=== PATIENT | female | born 1945 | race Caucasian/White ===

== ENCOUNTER 2018-10-17 11:12 | Emergency (ER) | payer MEDICARE, MEDICAID ==
[~2018-10-17] VITALS: Ht 152.4 cm; Wt 75.9 kg
[~2018-10-17 11:12] MED LIST: ALBU8.5H8 IH; ATRIN IH; EZET10TA14 PO; FURO20TA4 PO; HYDR-4353 PO; NITR0.4T SL; OMEP20TA23 PO; SERT25TA PO
[2018-10-17 12:11] LABS: BASOPHILS % (AUTO) 0.2 % (0-1); EOSINOPHILS % (AUTO) 0.4 % (0-6); HEMATOCRIT 37.9 % (35.0-45.0); HEMOGLOBIN 12.5 g/dl (12.0-16.0); LYMPHOCYTES # (AUTO) 1.4 X10'3 (1.1-4.8); LYMPHOCYTES % (AUTO) 15.7 % (21-51); MEAN CORPUSCULAR HEMOGLOBIN 32.6 PG (27.0-31.0); MEAN CORPUSCULAR VOLUME 98.9 FL (78-98); MEAN PLATELET VOLUME 7.1 FL (7.4-10.4); MONOCYTES % (AUTO) 10.9 % (2-12); NEUTROPHILS # (AUTO) 6.6 X10'3 (1.8-7.7); NEUTROPHILS % (AUTO) 72.8 % (42-75); PLATELET COUNT 303 X10'3 (140-440); RED BLOOD COUNT 3.83 X10'6 (4.20-5.60); RED CELL DISTRIBUTION WIDTH 12.2 % (11.5-14.5)
[2018-10-17] MEDS: levoFLOXACIN 750MG TABLET PO ONE (12:30)
[2018-10-17] MEDS: methylPREDNISolone sod succ 125mg/2ml vial IV ONE (12:30)
[2018-10-17 12:38] LABS: ALANINE AMINOTRANSFERASE 20 U/L (12-78); ALBUMIN 3.6 G/DL (3.4-5.0); ALBUMIN/GLOBULIN RATIO 0.9 (1.1-1.5); ALKALINE PHOSPHATASE 81 IU/L (46-116); ANION GAP 3 (8-16); ASPARTATE AMINO TRANSFERASE 12 U/L (10-37); BILIRUBIN,TOTAL 0.2 MG/DL (0.1-1.0); BLOOD UREA NITROGEN 6 MG/DL (7-18); BUN/CREATININE RATIO 11.1 (6.6-38.0); CALCIUM 9.1 MG/DL (8.5-10.1); CHLORIDE 98 MMOL/L (99-107); CREATININE 0.54 MG/DL (0.40-0.90); GLUCOSE 97 MG/DL (70-104); POTASSIUM 3.8 MMOL/L (3.5-5.1); SODIUM 142 MMOL/L (135-145); TOTAL PROTEIN 7.8 G/DL (6.4-8.2); eGFR > 90 ML/MIN
[2018-10-17 12:41] LABS: TOTAL CARBON DIOXIDE 41.1 MMOL/L (24-32)
[2018-10-17] MEDS ORDERED: METH4TAB81 PO (14:00)
[2018-10-17] MEDS ORDERED: LEVO750T21 PO (14:00)
[2018-10-17 14:21] VITALS: BP 142/85
== END 2018-10-17 14:24 | disposition home or self-care (01) ==
LOC: ER 11:12
DX: J44.1 Chronic obstructive pulmonary disease with (acute) exacerbation (principal); R60.0 Localized edema; I25.10 Atherosclerotic heart disease of native coronary artery without angina pectoris; I50.9 Heart failure, unspecified; E78.00 Pure hypercholesterolemia, unspecified; I25.2 Old myocardial infarction; Z88.8 Allergy status to other drugs, medicaments and biological substances; Z79.899 Other long term (current) drug therapy; Z99.81 Dependence on supplemental oxygen
CPT/HCPCS: 36415; 71045; 80053; 83880; 84484; 85025; 93005; 96374; 99284; J2930

== ENCOUNTER 2019-10-19 09:58 | Inpatient (IN) | payer MEDICARE, MEDICAID ==
[~2019-10-19] VITALS: Ht 167.6 cm; Wt 72.7 kg
[~2019-10-19 09:58] MED LIST changes: -EZET10TA14 PO; +EZET10TA21 PO; +METH4TAB81 PO
[2019-10-19 10:32] LABS: BASOPHILS % (AUTO) 0.3 % (0-1); EOSINOPHILS % (AUTO) 0 % (0-6); HEMATOCRIT 39.6 % (35.0-45.0); LYMPHOCYTES % (AUTO) 8.7 % (21-51); MEAN CORPUSCULAR HEMOGLOBIN 33.1 PG (27.0-31.0); MEAN CORPUSCULAR HGB CONC 32.9 g/dL (33.0-36.5); MEAN CORPUSCULAR VOLUME 100.8 FL (78-98); MEAN PLATELET VOLUME 7.4 FL (7.4-10.4); MONOCYTES # (AUTO) 1.2 X10'3 (0-0.9); MONOCYTES % (AUTO) 9.8 % (2-12); NEUTROPHILS # (AUTO) 9.7 X10'3 (1.8-7.7); NEUTROPHILS % (AUTO) 81.2 % (42-75); PLATELET COUNT 295 X10'3 (140-440); RED BLOOD COUNT 3.93 X10'6 (4.20-5.60); RED CELL DISTRIBUTION WIDTH 13.2 % (11.5-14.5)
[2019-10-19] MEDS ORDERED: magnesium 2GM in 50ml NS 50 ML IV ONE (10:45)
[2019-10-19] MEDS ORDERED: ipratropium/albuterol 3ml nebule NEB ONE (10:45)
[2019-10-19] MEDS ORDERED: methylPREDNISolone sod succ 125mg/2ml vial IV ONE (10:45)
[2019-10-19 10:55] LABS: ALANINE AMINOTRANSFERASE 16 U/L (12-78); ALBUMIN 3.7 G/DL (3.4-5.0); ALBUMIN/GLOBULIN RATIO 0.8 (1.1-1.5); ALKALINE PHOSPHATASE 82 IU/L (46-116); ANION GAP -2 (8-16); ASPARTATE AMINO TRANSFERASE 12 U/L (10-37); BILIRUBIN,TOTAL 0.4 MG/DL (0.1-1.0); BLOOD UREA NITROGEN 10 MG/DL (7-18); BUN/CREATININE RATIO 16.7 (6.6-38.0); CALCIUM 9.7 MG/DL (8.5-10.1); CHLORIDE 100 MMOL/L (99-107); GLUCOSE 153 MG/DL (70-104); POTASSIUM 4.4 MMOL/L (3.5-5.1); SODIUM 140 MMOL/L (135-145); TOTAL PROTEIN 8.6 G/DL (6.4-8.2); eGFR > 90 ML/MIN
[2019-10-19 10:58] LABS: TOTAL CARBON DIOXIDE 42.3 MMOL/L (24-32)
[2019-10-19 11:30] LABS: ABG OXYGEN SATURATION 98.6 % (95-98); ABG PCO2 (T) 75.2 mmHg (35.0-45.0); ABG PO2 (T) 180.2 mmHg (83-108); ALLEN'S TEST Positive; FCOHb 1.2 % (0.5-1.5); FLOW 8 L/min; FMetHb 0.3 % (0.3-1.12); FO2Hb 97.1 % (94-100); TOTAL HEMOGLOBIN 13.2 G/dl (12.0-16.0)
[2019-10-19 11:53] LABS: MAGNESIUM 2.2 MG/DL (1.5-2.4)
[2019-10-19] MEDS ORDERED: KEN0.1O TP (12:23)
[2019-10-19] MEDS ORDERED: ondansetron/PF 4mg/2ml inj IV PRN (12:30)
[2019-10-19] MEDS ORDERED: acetaminophen 650mg rectal suppository RC PRN (12:30)
[2019-10-19] MEDS ORDERED: potassium CL 10mEq/100ml bag 100 ML IV PRN ×2 (12:30)
[2019-10-19] MEDS ORDERED: magnesium Cl slow-release 64mg tablet PO PRN (12:30)
[2019-10-19] MEDS ORDERED: magnesium 2GM in 50ml NS 50 ML IV PRN (12:30)
[2019-10-19] MEDS ORDERED: diphenhydrAMINE 25mg capsule PO PRN (12:30)
[2019-10-19] MEDS ORDERED: bisacodyl 10mg suppository rectal RC PRN (12:30)
[2019-10-19] MEDS ORDERED: magnesium 4gm in 100ml NS 100 ML IV PRN (12:30)
[2019-10-19] MEDS ORDERED: acetaminophen 325mg tablet PO PRN ×2 (12:30)
[2019-10-19] MEDS ORDERED: diphenhydrAMINE 50 mg/ml inj IV PRN (12:30)
[2019-10-19] MEDS ORDERED: ipratropium/albuterol 3ml nebule NEB PRN (12:30)
[2019-10-19] MEDS ORDERED: metoclopramide 5 mg/ml inj IV PRN (12:30)
[2019-10-19] MEDS ORDERED: magnesium hydroxide 30ml (MOM) UD suspension PO PRN (12:30)
[2019-10-19] MEDS ORDERED: HYDROcodone/acetaminophen 10/325mg tab PO PRN (12:30)
[2019-10-19] MEDS ORDERED: potassium Cl 20 mEq SR tablet PO PRN ×2 (12:30)
[2019-10-19] MEDS ORDERED: mag hydrox/Alum hydrox/simeth 30ml oral suspension PO PRN (12:30)
[2019-10-19] MEDS: levoFLOXACIN-Levaquin 500mg/D5 100 ML IV SCH (13:27)
[2019-10-19] MEDS ORDERED: methylPREDNISolone sod succ 125mg/2ml vial IV SCH (14:00)
--- NOTE | 2019-10-19 15:52 | NUR ---
pt to be transferred to 6663D, report called to PASTOR Motley.
[2019-10-19 16:10] VITALS: BP 131/72
--- NOTE | 2019-10-19 16:10 | NUR ---
Patient admitted to room 3023A. Transferred from ED [facility] with standby assist. Patient oriented to room and call light. Call light and TV, personal items within reach. Patient on 3L NC. Admit VS taken and are stable. Will continue to monitor patient.
[2019-10-19] MEDS: methylPREDNISolone sod succ 125mg/2ml vial IV SCH (17:25)
--- NOTE | 2019-10-19 18:00 | NUR ---
Patient in room PCU 3023. I have received report from Tiehsa Beltran and had the opportunity to ask questions and assume patient care.
--- NOTE | 2019-10-19 18:26 | NUR ---
Problems reprioritized. Patient report given, questions answered & plan of care reviewed with Sophie BAUMANN.
[2019-10-19] MEDS: K and/or MAG REPLACEMENT MC SCH (20:00)
[2019-10-19] MEDS: docusate sod 100mg capsule PO SCH (20:00)
[2019-10-19] MEDS: ipratropium/albuterol 3ml nebule NEB SCH ×2 (20:05→23:42)
[2019-10-19] MEDS: furosemide 20 MG/2 ML vial IV SCH (21:00)
[2019-10-19] MEDS ORDERED: temazepam 15mg capsule PO PRN (21:00)
[2019-10-19 22:00] VITALS: BP 136/67
[2019-10-20] MEDS: HYDROcodone/acetaminophen 5mg/325mg tablet PO PRN ×2 (00:23→18:48)
[2019-10-20] MEDS: methylPREDNISolone sod succ 125mg/2ml vial IV SCH ×4 (00:24→20:52)
[2019-10-20] MEDS ORDERED: metoprolol tartrate 1mg/ml inj IV ONE ×2 (01:20→09:30)
[2019-10-20 02:00] VITALS: BP 137/76
[2019-10-20 05:58] LABS: BASOPHILS % (AUTO) 0 % (0-1); EOSINOPHILS % (AUTO) 0 % (0-6); HEMATOCRIT 35.6 % (35.0-45.0); HEMOGLOBIN 12.2 g/dl (12.0-16.0); LYMPHOCYTES # (AUTO) 0.6 X10'3 (1.1-4.8); LYMPHOCYTES % (AUTO) 5.9 % (21-51); MEAN CORPUSCULAR HEMOGLOBIN 33.7 PG (27.0-31.0); MEAN CORPUSCULAR HGB CONC 34.2 g/dL (33.0-36.5); MEAN CORPUSCULAR VOLUME 98.5 FL (78-98); MONOCYTES # (AUTO) 0.3 X10'3 (0-0.9); MONOCYTES % (AUTO) 2.8 % (2-12); NEUTROPHILS # (AUTO) 8.6 X10'3 (1.8-7.7); NEUTROPHILS % (AUTO) 91.3 % (42-75); PLATELET COUNT 317 X10'3 (140-440); RED BLOOD COUNT 3.62 X10'6 (4.20-5.60); RED CELL DISTRIBUTION WIDTH 12.9 % (11.5-14.5); WHITE BLOOD COUNT 9.4 X10'3 (4.5-11.0)
[2019-10-20 06:00] VITALS: BP 137/72
[2019-10-20 06:17] LABS: ALANINE AMINOTRANSFERASE 16 U/L (12-78); ALBUMIN 3.3 G/DL (3.4-5.0); ALBUMIN/GLOBULIN RATIO 0.7 (1.1-1.5); ALKALINE PHOSPHATASE 77 IU/L (46-116); ANION GAP -1 (8-16); ASPARTATE AMINO TRANSFERASE 9 U/L (10-37); BILIRUBIN,TOTAL 0.2 MG/DL (0.1-1.0); BLOOD UREA NITROGEN 15 MG/DL (7-18); BUN/CREATININE RATIO 24.6 (6.6-38.0); CALCIUM 9.8 MG/DL (8.5-10.1); CHLORIDE 100 MMOL/L (99-107); CREATININE 0.61 MG/DL (0.40-0.90); GLUCOSE 190 MG/DL (70-104); MAGNESIUM 2.5 MG/DL (1.5-2.4); PHOSPHORUS 3.3 MG/DL (2.3-4.5); SODIUM 139 MMOL/L (135-145); TOTAL CARBON DIOXIDE 39.9 MMOL/L (24-32); TOTAL PROTEIN 7.9 G/DL (6.4-8.2); eGFR > 90 ML/MIN
[2019-10-20] MEDS: ipratropium/albuterol 3ml nebule NEB SCH ×4 (06:50→20:11)
--- NOTE | 2019-10-20 06:50 | NUR ---
Problems reprioritized. Patient report given, questions answered & plan of care reviewed with Tiesha BAUMANN.
--- NOTE | 2019-10-20 06:57 | NUR ---
Patient in room U 3023A. I have received report from Sophie BAUMANN and had the opportunity to ask questions and assume patient care. Patient sitting up in bed, requesting a snack, given applesauce.
[2019-10-20] MEDS: levoFLOXACIN-Levaquin 500mg/D5 100 ML IV SCH (07:17)
[2019-10-20] MEDS: enoxaparin 40mg/0.4ml syringe SUBCUT SCH (07:17)
[2019-10-20] MEDS: furosemide 20 MG/2 ML vial IV SCH ×2 (07:17→20:53)
[2019-10-20] MEDS: docusate sod 100mg capsule PO SCH ×2 (08:00→20:00)
[2019-10-20] MEDS: K and/or MAG REPLACEMENT MC SCH ×2 (08:00→20:00)
--- NOTE | 2019-10-20 09:18 | NUR ---
Paged hospitalist, Dr. Cazares, regarding patient's heart rate. PAGER ID: [phone] MESSAGE: Tiesha collazo [phone]. Derrell Mccann 3021A. Patient in SVT in the 170's. No PRN meds ordered. Do you want any medications? Thanks!
[2019-10-20] MEDS ORDERED: ipratropium 0.5 MG/2.5ML nebule IH PRN (09:30)
--- NOTE | 2019-10-20 09:56 | NUR ---
Sonal hospitalist, Dr. Cazares PAGER ID: [phone] MESSAGE: Tiesha Ruby ocllazo [phone]. RE Derrell Fernández Pt walking with PT, HR up to 160-170. Do you want us to give the Lopressor IV dose? And do you want Cardizem given now? Thanks!
[2019-10-20] MEDS ORDERED: FLU VACC QS2019-20 36MOS UP/PF 60 MCG/0.5 ML SYRINGE IMVAC ONE (10:00)
--- NOTE | 2019-10-20 10:16 | NUR ---
Malnutrition consult: Pt unsure of any wt loss however reports eating poorly d/t decrease appetite per malnutrition risk screening with RN. Patient's current stated wt is stable with scaled wt of 75.5 kg taken 10/17/18. Pt on heart healthy diet documented with 75% PO intake meeting nutrient needs. Pt with no documented edema or decrease in muscle strength. Per H&P pt appears well-nourished. Pt currently does not meet criteria for malnutrition. Will continue to follow. Addendum: 10/20/19 at [address] Amended: Links added.
[2019-10-20 11:00] VITALS: BP 103/67
[2019-10-20] MEDS: diltiazem 30mg tablet PO SCH ×2 (13:51→20:51)
[2019-10-20] MEDS: levalbuterol 0.63mg/3ml nebule IH SCH ×2 (15:10→20:13)
[2019-10-20 18:00] VITALS: BP 149/78
--- NOTE | 2019-10-20 18:40 | NUR ---
Patient in room PCU 3028D. I have received report from PASTRO Motley and had the opportunity to ask questions and assume patient care. Patient denies SOB, dizziness, CP, and rated pain 7/10. Will administered Troy 5 for pain
--- NOTE | 2019-10-20 18:40 | NUR ---
Problems reprioritized. Patient report given, questions answered & plan of care reviewed with Nichole BAUMANN.
[2019-10-20 22:00] VITALS: BP 135/66
[2019-10-21 02:00] VITALS: BP 140/76
[2019-10-21] MEDS: diltiazem 30mg tablet PO SCH ×2 (02:33→07:36)
[2019-10-21] MEDS: methylPREDNISolone sod succ 125mg/2ml vial IV SCH ×2 (02:33→07:37)
[2019-10-21] MEDS: HYDROcodone/acetaminophen 5mg/325mg tablet PO PRN (02:34)
[2019-10-21] MEDS: ipratropium 0.5 MG/2.5ML nebule IH SCH ×2 (02:39→08:17)
[2019-10-21] MEDS: levalbuterol 0.63mg/3ml nebule IH SCH ×2 (02:39→08:17)
[2019-10-21 06:00] VITALS: BP 140/75
[2019-10-21 06:18] LABS: BASOPHILS % (AUTO) 0 % (0-1); EOSINOPHILS % (AUTO) 0 % (0-6); HEMATOCRIT 40.4 % (35.0-45.0); HEMOGLOBIN 13.8 g/dl (12.0-16.0); LYMPHOCYTES # (AUTO) 0.5 X10'3 (1.1-4.8); LYMPHOCYTES % (AUTO) 5.4 % (21-51); MEAN CORPUSCULAR HEMOGLOBIN 33.4 PG (27.0-31.0); MEAN CORPUSCULAR HGB CONC 34.2 g/dL (33.0-36.5); MEAN CORPUSCULAR VOLUME 97.6 FL (78-98); MEAN PLATELET VOLUME 7.5 FL (7.4-10.4); MONOCYTES # (AUTO) 0.4 X10'3 (0-0.9); MONOCYTES % (AUTO) 3.5 % (2-12); NEUTROPHILS # (AUTO) 9.3 X10'3 (1.8-7.7); NEUTROPHILS % (AUTO) 91.1 % (42-75); PLATELET COUNT 413 X10'3 (140-440); RED BLOOD COUNT 4.14 X10'6 (4.20-5.60); WHITE BLOOD COUNT 10.2 X10'3 (4.5-11.0)
--- NOTE | 2019-10-21 06:25 | NUR ---
Problems reprioritized. Patient report given, questions answered & plan of care reviewed with PASTOR Motley . Patient stable at shift change
--- NOTE | 2019-10-21 06:25 | NUR ---
Patient in room PCU 3023. I have received report from PASTOR Brunson and had the opportunity to ask questions and assume patient care. Patient currently sitting up in bed, reports pain in RUQ 3/10, otherwise no distress, will continue to monitor.
[2019-10-21 06:42] LABS: ALANINE AMINOTRANSFERASE 19 U/L (12-78); ALBUMIN 3.5 G/DL (3.4-5.0); ALBUMIN/GLOBULIN RATIO 0.7 (1.1-1.5); ALKALINE PHOSPHATASE 75 IU/L (46-116); ANION GAP -1 (8-16); ASPARTATE AMINO TRANSFERASE 12 U/L (10-37); BILIRUBIN,TOTAL 0.2 MG/DL (0.1-1.0); BLOOD UREA NITROGEN 23 MG/DL (7-18); BUN/CREATININE RATIO 30.7 (6.6-38.0); CALCIUM 9.9 MG/DL (8.5-10.1); CHLORIDE 99 MMOL/L (99-107); CREATININE 0.75 MG/DL (0.40-0.90); GLUCOSE 168 MG/DL (70-104); MAGNESIUM 2.5 MG/DL (1.5-2.4); PHOSPHORUS 3.7 MG/DL (2.3-4.5); POTASSIUM 4.3 MMOL/L (3.5-5.1); SODIUM 141 MMOL/L (135-145); TOTAL PROTEIN 8.4 G/DL (6.4-8.2); eGFR 76 ML/MIN
[2019-10-21 06:58] LABS: TOTAL CARBON DIOXIDE 42.5 MMOL/L (24-32)
[2019-10-21 06:59] LABS: H PYLORI ANTIBODY POSITIVE (Neg)
--- NOTE | 2019-10-21 07:18 | NUR ---
PAGER ID: [phone] MESSAGE: PASTOR Motley ext [phone], [id number], silvano Fernández critical value received; CO2 42.5
[2019-10-21] MEDS: pantoprazole 40mg Tablet.DR PO SCH ×2 (07:36→07:52)
[2019-10-21] MEDS: furosemide 20 MG/2 ML vial IV SCH (07:37)
[2019-10-21] MEDS: enoxaparin 40mg/0.4ml syringe SUBCUT SCH (07:38)
[2019-10-21] MEDS: levoFLOXACIN-Levaquin 500mg/D5 100 ML IV SCH (07:38)
[2019-10-21] MEDS: docusate sod 100mg capsule PO SCH (07:40)
[2019-10-21] MEDS: K and/or MAG REPLACEMENT MC SCH (08:00)
[2019-10-21] MEDS ORDERED: FLU VACC QS2019-20 36MOS UP/PF 60 MCG/0.5 ML SYRINGE IMVAC ONE (10:00)
--- NOTE | 2019-10-21 10:17 | NUR ---
promotional table spacer PAGER ID: [phone] MESSAGE: PASTOR Motley, ext [phone], [phone], Jolene, please address med-rec, patient is asking about her home meds.
[2019-10-21] MEDS ORDERED: nitroGLYCERIN 0.4mg SUBLingual tab SL PRN (10:30)
[2019-10-21 11:00] VITALS: BP 138/75
[2019-10-21] MEDS ORDERED: LEVO500T2 PO (12:19)
[2019-10-21] MEDS ORDERED: HYDR-4383 PO (12:19)
[2019-10-21] MEDS ORDERED: DILT30TA5 PO (12:19)
[2019-10-21] MEDS ORDERED: PRED20TA PO (12:19)
[2019-10-21] MEDS ORDERED: ATR0.5NEB IH (12:45)
[2019-10-21] MEDS ORDERED: LEVA0.6333 IH (12:45)
--- NOTE | 2019-10-21 14:13 | NUR ---
Received orders for patient discharge to home. Patient osvaldo gathered, patient edcuated on discharge instructions. Given information to contact Dr. Marshall to follow up regarding cholelithiasis. Patient verbalized understanding of education received. IV removed, catheter tip intact, hemostasis achieved, telemetry removed, flu shot given. Patient stable at time of discharge.
[2019-10-21] MEDS ORDERED: lactobacillus rhamnosus 10,000 MMU CELLS/CAPSULE PO SCH (20:00)
--- NOTE | 2019-10-25 10:55 | NUR ---
Case management DC follow-up: LM w/pt VM to check on pt and ensure all needs met/call back for any questions or concerns
== END 2019-10-21 13:59 | disposition home or self-care (01) | DRG 191 ==
LOC: ER 09:59 → ED HOLD 12:30 → PCU 3S 16:32
PROVIDERS: ADMIT Family Medicine; ATTEND Family Medicine
DX: J44.1 Chronic obstructive pulmonary disease with (acute) exacerbation (principal); I50.32 Chronic diastolic (congestive) heart failure; I47.1 Supraventricular tachycardia; E78.00 Pure hypercholesterolemia, unspecified; E78.5 Hyperlipidemia, unspecified; I25.10 Atherosclerotic heart disease of native coronary artery without angina pectoris; I27.20 Pulmonary hypertension, unspecified; K80.20 Calculus of gallbladder without cholecystitis without obstruction; Z87.891 Personal history of nicotine dependence; I25.2 Old myocardial infarction; Z99.81 Dependence on supplemental oxygen; Z23 Encounter for immunization
CPT/HCPCS: 36415; 36600; 71045; 76700; 80053; 82803; 83735; 83880; 84100; 84484; 85018; 85025; 86677; 87070; 87081; 87502; 87503; 93005; 94640; 94760; 97116; 97161; 97530; G0378; J1650; J1940; J1956; J2930; J3475; J3490; J7614; Q2037